=== PATIENT | male | born 1995 | race Caucasian/White ===

== ENCOUNTER 2017-10-24 20:37 | Emergency (ER) | payer OTHER ==
[~2017-10-24] VITALS: Ht 172.7 cm; Wt 78.0 kg
[2017-10-24 20:45] VITALS: Ht 172.7 cm; Wt 78.0 kg
[2017-10-25 00:01] VITALS: BP 138/71
== END 2017-10-25 00:01 | disposition home or self-care (01) ==
LOC: ED 20:37
DX: S61.214A Laceration without foreign body of right ring finger without damage to nail, initial encounter (principal); W26.8XXA Contact with other sharp object(s), not elsewhere classified, initial encounter; Y93.89 Activity, other specified; Y92.89 Other specified places as the place of occurrence of the external cause; Y99.8 Other external cause status
CPT/HCPCS: 90715; J2001